=== PATIENT | male | born 2000 | race Caucasian/White ===

== ENCOUNTER 2020-10-24 07:07 | Outpatient (REF) | payer OTHER, SELFPAY ==
[2020-10-24 11:45] LABS: Anion Gap 14 (12-20); Blood Urea Nitrogen 13 mg/dL (9-16); Calcium 8.9 mg/dL (8.4-10.2); Carbon Dioxide 26 mmol/L (22-29); Chloride 105 mmol/L (96-108); Estimated Glomerular Filt Rate > 60; Glucose Random 95 mg/dL (60-115); Potassium 4.5 mmol/l (3.3-5.1); Sodium 140 mmol/L (135-145)
== END 2020-10-24 07:08 | disposition home or self-care (01) ==
LOC: HO.WFDLDS 07:07
PROVIDERS: Visit Provider Hospitalist
DX: M54.32 Sciatica, left side (principal)
CPT/HCPCS: 80048

== ENCOUNTER 2021-05-04 14:00 | Outpatient (RCR) | payer OTHER, SELFPAY ==
--- NOTE | 2021-01-19 12:54 | MHC.PT.OE ---
[facility] [place] Office [place] Office [place] Office [address] Stan Medley [address] [phone] F: [phone] F: [phone] F: [phone] F: [phone] Physical Therapy Evaluation Evaluation Date: 01/19/21 Current Condition Diagnosis: PT eval and treat; M54.32 Sciatica Left side, nerve pain date of referral in 01/05/21 Onset Date: July 2020 Date of Surgery: N/A Chief Complaint/ Current Level of Function: Pt is a R hand dominant, 20 y/o male, referred to PT with date of referral 01/05/21 from PCP Alina Brown NP for treatment of sciatica left side. Pt reports onset of sx in July 28, 2020; pt was lifting a box while moving 15-20# he estimates; had sharp pain in his back. Pt stated following injury he was unable to stand erect, reported had difficulty walking due to back pain. Pt took ibuprofen over the counter, trialed over the counter pain patches. Vague as to treatment following next few months.. was seen by PCP given meds as noted below. Pt reports about two months after injury he started to notice near constant buttocks, lateral thigh pain radiating to lateral calf. Reports difficulty with bending over to put on his socks/shoes. Pt stated now he no longer has back pain. Stated was recently prescribed cyclobenzaprine recently which he stated hhelp. Pt is also taking gabapentin since October, taking 600mg ibuprofen 3x/daily. Pt trialed ice which did not seem to make a difference. Denies pain with stairs. Took a semester off from school, has not work since [employer]. Reports walking and standing makes symptoms, reports feels his leg feels unstable. Was previously working in [employer]. Reports did have some sleep disturbance, L SL is worse for position. Pt was advised to follow up with PCP after completion of PT. Pt reports history of previous back pain with some sciatic sx; was previously 240/235lbs, 195lbs now 5'11'' Prior Level of Function/Occupation: Pre injury- played ultimate frisbee a few times per week; coleen runs a few a few times per week, was going to school at [employer]- previous Criminal Justice degree-did online semester for PSY- took semester off due to online learning challenges Not currently working- was working in [employer] pre COVID Reports unrestricted for all positions pre injury no sleep disturbance L SL Diagnostic Imaging: None Patient Goals and Expectations: 1.No more leg pain, or less leg pain. Past Medical History: PMH: asthma as a kid, Medications: gabapentin, ibuprofen, cyclopenzaprine Precautions/ Contraindications: L sciatica sx, signs and sx consistent with disc pathology (+) SLR on L, (+) SLUMP on L Sx radiate down lateral thigh No bowel/bladder sx, no weakness, DTRs diminished B ? will reassess next session Outcome Measure: LEFS 52/80 Pain Pain Score: 4/10 with medication, 7-8/10 without medication Pain Scale Used: Pain Location/ Description: Left leg With medication 4/10 Without medication 7-8/10 Dull,throbbing, sharp pin and needles Aggravating Factors: Standing, walking Alleviating Factors: Sitting >lying down Objective Findings Posture: Skin & Soft Tissue/ Palpation: Gait/ Functional Mobility: Symmetrical gait with guarded stance phase of the L LE, decreased swing phase on L Foot flat contact AROM (PROM) Strength Cervical Spine Flexion: Extension: Lateral Flexion: Rotation: Cervical Comments: Flexion: Extension: Lateral Flexion: Rotation: Other: Shoulder Flexion: Extension: Abduction: ER: IR: Apley ER: Apley IR: Comments: Flexion: Extension: Abduction: Adduction: ER: IR: Other: Elbow Flexion: Extension: Pronation: Supination: Comments: Flexion: Extension: Pronation: Supination: Wrist Flexion: Wrist Extension: Other: Lumbar Spine Flexion: 25%, increased L LE sx radiating to L calf Extension: 75% reduce L LE with repeated ext x 5 reps to proximal hip Lateral Flexion: Rotation: 75 Comments: R sidebending resulted in stretch for L lumbar region No increase in sx with side-bending in L LE Hypo mobility T3-T12 thoracic spine discomfort stiffness verbalized Hypermobile segments L2-L5 with pain reported Transverse abdominus: No active recruitment noted Extensors: Other: Hip Flexion: Extension: Abduction: Adduction: ER: IR: Comment: Flexion: L sx lumbar, R WFL Extension: L>R active pain in lumbar (+) lumbar instability testing Abduction: Adduction: ER: IR: Other: Passive hip ER/IR on bilateral LE WFL; no change in L LE sx with ROM Knee AROM WFL bilaterally Bridge able to perform with no core recruit no report of pain Knee Flexion: Extension: Comments: Patella Mobility: Flexion: Extension: Other: Ankle Dorsiflexion: Plantarflexion: Inversion: Eversion: Comments: Dorsiflexion: Plantarflexion: Inversion: Eversion: Comments: Anju Assessment: (+) centralization sx initially radiating to L5 lateral calf rated 4/10 with medication in system reduced to 2/10 post 5 reps and prone lying>ARVIND trial x 5/5/minutes Sacroiliac Assessment: (+) squish test Negative SI Muscle Length: L HS 150 degrees R HS 170 (+) SLump L (+) SLR at 50 degrees on L LE Special Tests: Functional squat (+) fair translation posteriorly with LOB No active core recruitment Mild valgus collapse to knees bilaterally L SLS assessment poor trunk control, significant unsteadiness, report feeling off-balanced <5 seconds R SLS Improved core control, no report of pain Trial SLS mini squat (+) valgus on L LE compared to R Able to walk on heels/toes, Great toe ext 5/5 B L hip flexion 3/5 sx, L knee ext 3-/5 sx R 5/5 throughout L SL increased sx Vitals: BP: HR: O2SAT: RR: Other: Balance: Neurological Screen: Biceps DTR: Brachioradialis DTR: Triceps DTR: Patella DTR: 1+ bilaterally Achilles DTR: Other: Dermatomes: Sensation: Intact to bilateral LE Myotomes: Patient Education Primary Language Uzbek Ldr Nurse Required Who was Educated Patient Readiness for Learning Denying Current Knowledge Understands information with skills for self-management Education Needs ADL's Disease Information Equipment Use Exercise Pain Safety Teaching Method Verbal Demonstration Handouts How did Patient Demonstrate Learning Patient demonstrates Patient verbalizes Barriers to Learning None Assessment Assessment: Pt is a R hand dominant, 20 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 Pt stated initially was not experiencing L LE sx however following two months after injury began to experience L sciatica sx, now describing more constant, occasionally intermittent sx; described as dull, ache, throbbing pins/needles consistent along L5 dermatome. Pt exhibits a (+) SLR and (+) slump test in L LE. He is unable to fully extend his L knee in sitting and has poor lumbar flexion ROM with worsening L LE sx with flexion ROM assessment. Passive hip ROM as WFL; (+) squish test on L. He presents with decreased thoracic Posterior>Anterior mobs of his thoracic spine T3-T12 levels; tightness of thoracic paraspinals, rounded shoulders, slumped posture, and increased lumbar lordosis. Pt was initially trialed in an extension based stabilization/position program with (+) centralization from initial sx radiating at height of lateral calf to height of L proximal hip. He will be seen in therapy at a frequency of 2x/week x 4 weeks. Initial trial of long axis distraction alleviated his sx; he may appears to be an excellent candidate trial for lumbar traction based on initial assessment, however we will begin with ext>flex based stabilization program in effort to initiate better self management of sx for home. When asked why he was delayed in start of treatment from time of referral, he stated he was out of the area in the past week; he has been taking medication including gabapentin, ibuprofen, and cyclobenzaprine over the past several months. Pt is an excellent rehab candidate, it is unfortunate he has been dealing with these symptoms since July, as it appears he has shown early positive response to treatment following evaluation today. He was issued a written HEP program and educated via use of the spine model. He demonstrates sx consistent with disc pathology and was educated in the goal of centralization vs peripheralization of sx. He was educated re: use o f a lumbar support roll and encouraged to avoid prolonged sitting; encouraged to move; to complete short low impact walking program within his tolerance level. He was educated to refrain from tasks that increase his L LE sx; he was issued prone lying x 5 minutes with TAC on/off 5/5 sec hold followed by prone lying on elbow 10 sec up/10 sec flat alternating with TAC x 5 minutes; He was also shown standing lumbar extension with TAC x modified range comfortable ROM x 5 sec hold x 5R with (+) centralization of sx from L lateral calf> L proximal lateral hip. Pt would benefit from attending skilled PT services at a frequency of 2x/weeks 4-6 weeks to address impairments, implement HEP, and restore functional mobility tolerance to improve walking tolerance, initiate lumbar/hip stab exercise program, resume his ability to run, normalize postural tolerance to complete L SL, squat, and bend MOD I. Rehabilitation Potential: Excellent Plan of Care Frequency and Duration 2x/week x 4 weeks Short Term Goals 1. Centralize L lateral calf sx to height of proximal thigh. 2. Reduce L sciatica sx from constant to intermittent frequency. 3. Initiate HEP with education of how to reduce sx intensity when experiencing sx. 4. Strength L hip ext 4-/5. 5. Lumbar flexion AROM comfortable to bend over and don/doff socks and shoes without sx >2/10 in L LE. Mcfp Goals 1. Centralize L thigh sx to height of lumbar region. 2. Pt will demonstrate negative slump testing/negative SLR. 3. I HEP with good understanding 4. LEFS improvement by 50%. 5. Resume exercise MOD I with good body mechanics/joint protection awareness. 6. Demonstrate functional squat 3:3 trials with no LOB 7. L SLS 20 seconds with good stability to complete dynamic dressing tasks. Treatment Plan Therapeutic Exercise Dynamic Therapeutic Activities Neuromuscular Re-ed Manual Therapies Joint Mobilization Taping Gait Home Exercise Program Patient Education Electrical Stimulation Ultrasound Mechanical Traction Hot or Cold Pack Reviewed/ Agreed with Student Documentation: Therapist: Electronically signed by: Madison Escobar, PT, DPT Please sign and return to therapist. Thank you for your referral.
--- NOTE | 2021-02-23 13:49 | MHC.PT.OD ---
[facility] [place] Office [place] Office [place] Office [address] Stan Medley [address] [phone] F: [phone] F: [phone] F: [phone] F: [phone] Physical Therapy Daily Note Diagnosis: PT eval and treat; M54.32 Sciatica Left side, nerve pain date of referral in 01/05/21 Date of Surgery: N/A Date of Evaluation: 01/19/21 Date of Treatment: 02/23/21 Treatments to Date: 10 Cancellations to Date: No Shows to Date: Authorized Visits: 1 Insurance End Date: Precautions/ Contraindications:L sciatica sx, signs and sx consistent with disc pathology L5/S1 (+) SLR on L, (+) SLUMP on L Sx radiate down lateral thigh to calf, Unable to fully extend L knee in sitting PROM/hip flexion on L does not prompt sx HS Length 145 in 90/90 with surge of sx Unable to stretch HS due to (+) neutral tension No bowel/bladder sx, Challenged with L SLS compared to R SLS Subjective: Pt reports worsening surge of sx down the leg in past few days... was more sore with progression of dynamic exercises. (Had been doing traction but reduced past few weeks as he exhibited (+) response to stab tasks; I didnt have any pain when we were doing it. Pain Score and Location: 3 (worse than usual) L SCIATICA Objective Flowsheet: Tests & Measures No meds in system today-- Has been taking 600mg gabapentin and one 800 mg ibuprofen in recent days down from 800mg 3x/daily and 2- 600mg gabapentin 3x/daily and cyclobenzaprine 12mg 1x/daily (+) SLUMP, (+) SLR Lumbar flexion ROM limited as surge of sx radiates down leg ranges 50-75% Exercises Reeval status as noted above Prone lying x 5 sec hold x 5 minutes TAC Prone on elbow x 10 sec hold/ 10 sec relax x 5 minutes Prone press up 10 sec up, 10 seconds flat, 10 second neutral x 5 minutes Standing lumbar ext with TAC with education re: abd recruitment, L peripheralization> centralization of sx Held dynamic stabilization activities today- reimplemented lumbar traction Story unit set in 90/90 with physioball purple in effort to centralize L LE sx x 6 pumps with mechanical pump Trial of STM which increased L calf sx so this was stopped 3 minutes into trial. Improved tolerance for 90/90 position with adjustment of physioball. Reviewed prone HEP series, posterior pelvic tilt, hooklying pec minor stretch over foam roller. Of side note: pt was trialed with brief episodic jogging in place with other dynamic tasks last session as he was doing well-- we had stopped the traction-- traction was resumed today. Modalities Stroy lumbar mechanical traction set in 90/90 position with purple pball with 6 pumps traction pressure post prone tasks/resassesment this date. Assessment: Pt has attended 10 session of PT to date, demonstrating significant improvement in L sciatica sx since start of care. Pt was receiving lumbar traction and has responded well to extension based stabilization exercises, however pt has had ongoing neural tension present in his leg- Pt has had severe L sciatica pain since July 2020 lifting a 20# box. Pt was first seen for this issue in October 2020 by Alina Brown NP. Pt was referred to therapy on 01/05/21 and has been seen 10 visits thus far. Due to ongoing L LE sx, therapist is questioning potential benefit in short dose steroid taper to ease neutral tension sx and reduce sx to further facilitate centralization of sx. PT Plan: Pt to make appt with PCP office- ? assess potential benefit in steroid taper to address L LE sciatica sx. Pt has responded well to traction and extension based stabilization. He continues to exhibit (+) SLR and slump testing on the L LE. Short Term Goals: 1. Centralize L lateral calf sx to height of proximal thigh (intermittently MET) 2. Reduce L sciatica sx from constant to intermittent frequency (MET) 3. Initiate HEP with education of how to reduce sx intensity when experiencing sx. (MET) 4. Strength L hip ext 4-/5. 5. Lumbar flexion AROM comfortable to bend over and don/doff socks and shoes without sx >2/10 in L LE. (intermittently met) Mcfp Goals: 1. Centralize L lateral calf sx to height of proximal thigh. 2. Reduce L sciatica sx from constant to intermittent frequency. 3. Initiate HEP with education of how to reduce sx intensity when experiencing sx. 4. Strength L hip ext 4-/5. 5. Lumbar flexion AROM comfortable to bend over and don/doff socks and shoes without sx >2/10 in L LE. Electronically signed by: Madison Escobar, PT, DPT
--- NOTE | 2021-02-23 13:50 | MHC.PT.OE ---
[facility] [place] [facility] [place] [facility] [place] [facility] [address] Stan Medley [address] [phone] F: [phone] F: [phone] F: [phone] F: [phone] Physical Therapy Evaluation Evaluation Date: 01/19/21 Current Condition Diagnosis: PT eval and treat; M54.32 Sciatica Left side, nerve pain date of referral in 01/05/21 Onset Date: July 2020 Date of Surgery: N/A Chief Complaint/ Current Level of Function: Pt is a R hand dominant, 20 y/o male, referred to PT with date of referral 01/05/21 from PCP Alina Brown NP for treatment of sciatica left side. Pt reports onset of sx in July 28, 2020; pt was lifting a box while moving 15-20# he estimates; had sharp pain in his back. Pt stated following injury he was unable to stand erect, reported had difficulty walking due to back pain. Pt took ibuprofen over the counter, trialed over the counter pain patches. Vague as to treatment following next few months.. was seen by PCP given meds as noted below. Pt reports about two months after injury he started to notice near constant buttocks, lateral thigh pain radiating to lateral calf. Reports difficulty with bending over to put on his socks/shoes. Pt stated now he no longer has back pain. Stated was recently prescribed cyclobenzaprine recently which he stated hhelp. Pt is also taking gabapentin since October, taking 600mg ibuprofen 3x/daily. Pt trialed ice which did not seem to make a difference. Denies pain with stairs. Took a semester off from school, has not work since [employer]. Reports walking and standing makes symptoms, reports feels his leg feels unstable. Was previously working in [employer]. Reports did have some sleep disturbance, L SL is worse for position. Pt was advised to follow up with PCP after completion of PT. Pt reports history of previous back pain with some sciatic sx; was previously 240/235lbs, 195lbs now 5'11'' Prior Level of Function/Occupation: Pre injury- played ultimate frisbee a few times per week; mile runs a few a few times per week, was going to school at [employer]- previous Criminal Justice degree-did online semester for PSY- took semester off due to online learning challenges Not currently working- was working in [employer] pre COVID Reports unrestricted for all positions pre injury no sleep disturbance L SL Diagnostic Imaging: None Patient Goals and Expectations: 1.No more leg pain, or less leg pain. Past Medical History: PMH: asthma as a kid, Medications: gabapentin, ibuprofen, cyclopenzaprine Precautions/ Contraindications: L sciatica sx, signs and sx consistent with disc pathology L5/S1 (+) SLR on L, (+) SLUMP on L Sx radiate down lateral thigh to calf, Unable to fully extend L knee in sitting PROM/hip flexion on L does not prompt sx HS Length 145 in 90/90 with surge of sx Unable to stretch HS due to (+) neutral tension No bowel/bladder sx, Challenged with L SLS compared to R SLS Outcome Measure: LEFS 52/80 Pain Pain Score: 3 (worse than usual) Pain Scale Used: Pain Location/ Description: Left leg With medication 4/10 Without medication 7-8/10 Dull,throbbing, sharp pin and needles Aggravating Factors: Standing, walking Alleviating Factors: Sitting >lying down Objective Findings Posture: Skin & Soft Tissue/ Palpation: Gait/ Functional Mobility: Symmetrical gait with guarded stance phase of the L LE, decreased swing phase on L Foot flat contact AROM (PROM) Strength Cervical Spine Flexion: Extension: Lateral Flexion: Rotation: Cervical Comments: Flexion: Extension: Lateral Flexion: Rotation: Other: Shoulder Flexion: Extension: Abduction: ER: IR: Apley ER: Apley IR: Comments: Flexion: Extension: Abduction: Adduction: ER: IR: Other: Elbow Flexion: Extension: Pronation: Supination: Comments: Flexion: Extension: Pronation: Supination: Wrist Flexion: Wrist Extension: Other: Lumbar Spine Flexion: 25%, increased L LE sx radiating to L calf Extension: 75% reduce L LE with repeated ext x 5 reps to proximal hip Lateral Flexion: Rotation: 75 Comments: R sidebending resulted in stretch for L lumbar region No increase in sx with side-bending in L LE Hypo mobility T3-T12 thoracic spine discomfort stiffness verbalized Hypermobile segments L2-L5 with pain reported Transverse abdominus: No active recruitment noted Extensors: Other: Hip Flexion: Extension: Abduction: Adduction: ER: IR: Comment: Flexion: L sx lumbar, R WFL Extension: L>R active pain in lumbar (+) lumbar instability testing Abduction: Adduction: ER: IR: Other: Passive hip ER/IR on bilateral LE WFL; no change in L LE sx with ROM Knee AROM WFL bilaterally Bridge able to perform with no core recruit no report of pain Knee Flexion: Extension: Comments: Patella Mobility: Flexion: Extension: Other: Ankle Dorsiflexion: Plantarflexion: Inversion: Eversion: Comments: Dorsiflexion: Plantarflexion: Inversion: Eversion: Comments: Anju Assessment: (+) centralization sx initially radiating to L5 lateral calf rated 4/10 with medication in system reduced to 2/10 post 5 reps and prone lying>ARVIND trial x 5/5/minutes Sacroiliac Assessment: (+) squish test Negative SI Muscle Length: L HS 150 degrees R HS 170 (+) SLump L (+) SLR at 50 degrees on L LE Special Tests: Functional squat (+) fair translation posteriorly with LOB No active core recruitment Mild valgus collapse to knees bilaterally L SLS assessment poor trunk control, significant unsteadiness, report feeling off-balanced <5 seconds R SLS Improved core control, no report of pain Trial SLS mini squat (+) valgus on L LE compared to R Able to walk on heels/toes, Great toe ext 5/5 B L hip flexion 3/5 sx, L knee ext 3-/5 sx R 5/5 throughout L SL increased sx Vitals: BP: HR: O2SAT: RR: Other: Balance: Neurological Screen: Biceps DTR: Brachioradialis DTR: Triceps DTR: Patella DTR: 1+ bilaterally Achilles DTR: Other: Dermatomes: Sensation: Intact to bilateral LE Myotomes: Patient Education Primary Language Guinean Photogrammetry Airplane Pilot Required Who was Educated Patient Readiness for Learning Denying Current Knowledge Understands information with skills for self-management Education Needs ADL's Disease Information Equipment Use Exercise Pain Safety Teaching Method Verbal Demonstration Handouts How did Patient Demonstrate Learning Patient demonstrates Patient verbalizes Barriers to Learning None Assessment Assessment: Pt is a R hand dominant, 20 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 Pt stated initially was not experiencing L LE sx however following two months after injury began to experience L sciatica sx, now describing more constant, occasionally intermittent sx; described as dull, ache, throbbing pins/needles consistent along L5 dermatome. Pt exhibits a (+) SLR and (+) slump test in L LE. He is unable to fully extend his L knee in sitting and has poor lumbar flexion ROM with worsening L LE sx with flexion ROM assessment. Passive hip ROM as WFL; (+) squish test on L. He presents with decreased thoracic Posterior>Anterior mobs of his thoracic spine T3-T12 levels; tightness of thoracic paraspinals, rounded shoulders, slumped posture, and increased lumbar lordosis. Pt was initially trialed in an extension based stabilization/position program with (+) centralization from initial sx radiating at height of lateral calf to height of L proximal hip. He will be seen in therapy at a frequency of 2x/week x 4 weeks. Initial trial of long axis distraction alleviated his sx; he may appears to be an excellent candidate trial for lumbar traction based on initial assessment, however we will begin with ext>flex based stabilization program in effort to initiate better self management of sx for home. When asked why he was delayed in start of treatment from time of referral, he stated he was out of the area in the past week; he has been taking medication including gabapentin, ibuprofen, and cyclobenzaprine over the past several months. Pt is an excellent rehab candidate, it is unfortunate he has been dealing with these symptoms since July, as it appears he has shown early positive response to treatment following evaluation today. He was issued a written HEP program and educated via use of the spine model. He demonstrates sx consistent with disc pathology and was educated in the goal of centralization vs peripheralization of sx. He was educated re: use o f a lumbar support roll and encouraged to avoid prolonged sitting; encouraged to move; to complete short low impact walking program within his tolerance level. He was educated to refrain from tasks that increase his L LE sx; he was issued prone lying x 5 minutes with TAC on/off 5/5 sec hold followed by prone lying on elbow 10 sec up/10 sec flat alternating with TAC x 5 minutes; He was also shown standing lumbar extension with TAC x modified range comfortable ROM x 5 sec hold x 5R with (+) centralization of sx from L lateral calf> L proximal lateral hip. Pt would benefit from attending skilled PT services at a frequency of 2x/weeks 4-6 weeks to address impairments, implement HEP, and restore functional mobility tolerance to improve walking tolerance, initiate lumbar/hip stab exercise program, resume his ability to run, normalize postural tolerance to complete L SL, squat, and bend MOD I. Rehabilitation Potential: Excellent Plan of Care Frequency and Duration 2x/week x 4 weeks Short Term Goals 1. Centralize L lateral calf sx to height of proximal thigh (intermittently MET) 2. Reduce L sciatica sx from constant to intermittent frequency (MET) 3. Initiate HEP with education of how to reduce sx intensity when experiencing sx. (MET) 4. Strength L hip ext 4-/5. 5. Lumbar flexion AROM comfortable to bend over and don/doff socks and shoes without sx >2/10 in L LE. (intermittently met) Well Drill Operator Rotary Drill Goals 1. Centralize L lateral calf sx to height of proximal thigh. 2. Reduce L sciatica sx from constant to intermittent frequency. 3. Initiate HEP with education of how to reduce sx intensity when experiencing sx. 4. Strength L hip ext 4-/5. 5. Lumbar flexion AROM comfortable to bend over and don/doff socks and shoes without sx >2/10 in L LE. Treatment Plan Therapeutic Exercise Dynamic Therapeutic Activities Neuromuscular Re-ed Manual Therapies Joint Mobilization Taping Gait Home Exercise Program Patient Education Electrical Stimulation Ultrasound Mechanical Traction Hot or Cold Pack Reviewed/ Agreed with Student Documentation: Therapist: Electronically signed by: Madison Escobar, PT, DPT Please sign and return to therapist. Thank you for your referral.
--- NOTE | 2021-05-05 08:52 | MHC.PT.OD ---
[facility] [place] [facility] [place] [facility] [place] [facility] [address] Stan Medley [address] [phone] F: [phone] F: [phone] F: [phone] F: [phone] Physical Therapy Daily Note Diagnosis: PT eval and treat; M54.32 Sciatica Left side, nerve pain date of referral in 01/05/21 Date of Surgery: N/A Date of Evaluation: 01/19/21 Date of Treatment: 05/04/21 Treatments to Date: Cancellations to Date: No Shows to Date: Authorized Visits: Insurance End Date: Precautions/ Contraindications:(+) SLR Subjective: My left leg has flared the past couple of days. Pt reports he walked 10-15 miles a day for the past three days. Pain Score and Location: 1 L SCIATICA Objective Flowsheet: Tests & Measures Lumbar flexion to mid thigh today with some sx mild proximal hig (+) introduction with no sx reported to calf Attempted repeated ext with increased L radicular sx noted x 3, reduce/centralized back to baseline with R side-bending and active extension Lumbar sidebend: Able to reach height bilaterally, no shooting sx with L sidebend Lumbar extension ROM WFL continues to reduce radicular sx Supine chin to chest (-) pain in lumbar Questionable ? R hip hump- scolosis mild states was informed as a child Greyson test (-) Psoas, (+) Rectus right slightly tighter than left. Prone instability test (-) L>R. (+) SLR at 40 degrees on L Hip abduction 4+/5 B Hip flexion 5/5, Hip ext 4+/5 no back pain reported Hip ER 4-/5 L, 4/5 on R Erector spinae tight along thoracic paraspinals, increased thoracic kyphosis Able to bridge however repeated flexion of bridge causes sx to radiate to L knee therapist advised patient to hold Functional squat is improving- pt now able to weight shift posteriorly improved awareness since evaluation, however posterior LOB is noted when squatting >40 degrees. Improving postural awareness and core recruitment, challenged with half kneeling position, with visible L LE quiver with weight-bearing tasks I understand how to squat now, I still lose my balance, Im working on it. No tenderness in L/S with palpation exam No Gowers sign upon return from flexion Improving mechanics of movement patterns observed with bed mobility, squatting, reaching down Exercises Seated Upright bike level 2.5 x 10 minutes Half-kneeling on airex pad with BLUE theraband row with core recruitment x 10R each with rest breaks secondary to fatigue, small cues to correct posture/trunk control. Standing hip hinge with blue theraband with functional squat x 3 sets 10R for shoulder extension , Seated hip hinge with small rising and return to sitting with arms crossed, core tight x10. Trial small range trunk rotation (approx 30 degrees) in hip hinge squat with blue therband x 10R each in effort to improve core strength/erector spinae strength, Seated resisted IR with blue band x 2 sets 10R, standing hip flexion/functional squat education Reviewed complete HEP program to date; addressed pt concerns/questions (+) Reassessment (+) SLUMP L LE, DTRs symmetrical 2+ patellar Able to bridge without pain, active lumbar flexion forward mid thigh radiates to L proximal hip- reviewed piriformis stretch vs radicular sx. Reviewed prone HEP series, posterior pelvic tilt, hooklying pec minor stretch over foam roller. Of side note: pt was trialed with brief episodic jogging in place with other dynamic tasks last session as he was doing well-- we had stopped the traction-- traction was resumed today. Modalities Combo with Advance TENS Setting 1 intensity 10-12mA Cross pattern L4/L5 Ch1 and Ch2 cross patterned with exercise and MHP over lumbar region x 15 minutes Assessment: Pt has attended 21/ sessions of PT to date, demonstrating advancement in progression of lumbar/hip stabilization program. He has weaned from use of ibuprofen, muscle relaxers, and gabapentin since start of care. He has demonstrated (+) centralization from height of L calf to proximal buttocks hip region since start of care and has improved awareness in body mechanics/squatting ability. He has reported a significant reduction in L LE sx, however he continues to demonstrate (+) L slump testing and is unable to demonstrate full AROM lumbar flexion without surge of L radicular sx. Sx are improved with active extension based tasks and R SB of the trunk. He is now able to sit and sleep MOD I, but he has begun to plateau in his status with PT. Pt was initiated in a walk>jog program for 2 miles with good tolerance. He was doing well until he demonstrated surge of sx in L hip/lumbar after walking 10-15 miles for the past three days while away on vacation. Pt was educated in importance of ramping up distance/endurance for such as task. He was also educated with walk>jog program. He did express prior ability to jog intermittently with positive response. Pt would likely benefit from referral to see a insurance follow up specialist due to ongoing (+) L slump testing, ongoing persistent sx with L lumbar flexion radiating to L LE. Pt has received treatment including mechanical lumbar traction, hip/lumbar stabilization, and extension>flexion based program. He was previously given one round of a prednisone steroid taper. He is able to bridge without sx, however his ultimate goal is running. He has a trip planned in nine months which will require him to walk prolonged distances and he has concerns for his sx based upon his current level of function. He has not received any form of imaging with sx which began in fall. Question R rib hump- ? mild scolosis noted. He was issued flexibility activities to address stiffness in his R>L thoracic spine. Pt was advised to monitor sx, continue extension based tasks and gradually ramp up program to increase goals of greater distances. 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 PT Plan: Education provided re: continue tasks of extension> flexion program, walk> jog>running in respect to avoiding surge of L LE sx..Progress trial half-kneeling, Reviewed importance functional squat/ Review golfer's lift, functional core training as compoent of hEP. Pt to consider making a follow up with PCP office should sx persist (?referral to insurance follow up specialist>MRI lumbar), educated that sometimes sx can take time to improve to build endurance for longer distances/speed. Pt was able to walk>jog with good tolerance prior to surge of walking distances progressively over three days. Short Term Goals: 1. Centralize L lateral calf sx to height of proximal thigh (intermittently MET) 2. Reduce L sciatica sx from constant to intermittent frequency (MET) 3. Initiate HEP with education of how to reduce sx intensity when experiencing sx. (MET) 4. Strength L hip ext 5/5. 5. Lumbar flexion AROM comfortable to bend over and don/doff socks and shoes without sx >2/10 in L LE. (unable still having sx with lumbar flexion). 6. RTW full shift catering with good carryover of body mechanics (has completed one shift). 7. Lumbar flexion to height of knees B with symmetry. Cold Roll Packer Sheet Iron Goals: 1. Centralize L LE sx with trunk flexion. (NOT MET) 2. Reduce L sciatica sx from constant to intermittent frequency. (MET) 3. Initiate HEP with education of how to reduce sx intensity when experiencing sx. (MET) 4. Strength L hip ext 4-/5. (MET) 5. Lumbar flexion AROM comfortable to bend over and don/doff socks and shoes without sx >2/10 in L LE. (Able to flex mid thigh 05/04/21 (+) surge sx) 6. Resume jogging>running program (03/30 walking 2 miles had flare with previous attempt jogging, not able to run). Electronically signed by: Madison Escobar, PT,DPT
== END 2021-09-22 12:50 | disposition home or self-care (01) ==
LOC: HO.PTWFD 14:00
PROVIDERS: Visit Provider Hospitalist
DX: M54.32 Sciatica, left side (principal)
CPT/HCPCS: 97012; 97014; 97110; 97140; 97161; 97164; 97530; 97535